=== PATIENT | male | born 1965 | race Caucasian/White ===

== ENCOUNTER 2019-10-01 19:13 | Emergency (ER) | payer SELFPAY ==
[~2019-10-01] VITALS: Ht 177.8 cm; Wt 110.7 kg
[2019-10-01] MEDS ORDERED: ADENOSINE 6 MG/2 ML IVPush ONE ×2 (19:30)
[2019-10-01] MEDS ORDERED: SODIUM CHLORIDE FLUSH 10ML SYR IVF ONE (19:30)
[2019-10-01] MEDS ORDERED: ADENOSINE 6 MG/2 ML ONE (19:36)
--- NOTE | 2019-10-01 19:39 | NUR ---
PT HERE WITH C/O "HEART RACING TYPE FEELING." PT AAO X 4, NAD, ROOM AIR, PT IN GOWN AND ON FULL MONITOR, MD AT BEDSIDE FOR EXAM. PT TO BE GIVEN ADENOSINE. PIV ESTABLISHED BY RN AND LABS DRAWN.
--- NOTE | 2019-10-01 19:42 | NUR ---
PADS ON PT, ADENOSINE AT BEDSIDE.
--- NOTE | 2019-10-01 19:45 | NUR ---
PT ON PADS AND CODE CART IN ROOM.
--- NOTE | 2019-10-01 19:51 | NUR ---
MD AT BEDSIDE, RN X 2 AT BEDSIDE. PT GIVEN 6MG IVP ADENOSINE. PT CONVERTED TO ST WITH A RATE OF 120S. BP 117/76.
[2019-10-01 19:53] VITALS: BP 117/76
--- NOTE | 2019-10-01 19:58 | NUR ---
TECH AT BEDSIDE FOR REPEAT EKG.
[2019-10-01 20:15] LABS: BASOPHILS # (AUTO) 0.04 x10^3/uL (0-0.1); BASOPHILS % (AUTO) 1 % (0-1); EOSINOPHILS # (AUTO) 0.25 x10^3/uL (0-0.4); EOSINOPHILS % (AUTO) 3 % (1-7); LYMPHOCYTES # (AUTO) 3.12 x10^3/uL (1-3.4); LYMPHOCYTES % (AUTO) 35 % (22-44); MD NO; MEAN CORPUSCULAR HGB CONC 33.6 g/dL (33.2-36.2); MEAN CORPUSCULAR VOLUME 98.4 fL (81-97); MEAN PLATELET VOLUME 8.2 fL (7.4-10.4); MONOCYTES # (AUTO) 1.15 x10^3/uL (0.2-0.8); MONOCYTES % (AUTO) 13 % (2-9); NEUTROPHILS # (AUTO) 4.35 x10^3/uL (1.8-6.8); NEUTROPHILS % (AUTO) 49 % (42-75); PLATELET COUNT 306 x10^3/uL (130-400); RED BLOOD COUNT 4.85 x10^6/uL (4.38-5.82); RED CELL DISTRIBUTION WIDTH 12.7 % (9.4-14.8)
--- NOTE | 2019-10-01 20:18 | NUR ---
Patient/Caregiver given discharge instructions and they have confirmed that they understand the instructions. Patient ambulatory with steady gait. PIV REMOVED WITH TIP INTACT.
[2019-10-01 20:22] LABS: ALANINE AMINOTRANSFERASE 68 U/L (12-78); ALBUMIN 4.1 g/dL (3.4-5.0); ANION GAP 12 mmol/L (5-15); CALCIUM 9.6 mg/dL (8.5-10.1); CHLORIDE 104 mmol/L (98-107)
[2019-10-01 20:33] LABS: ALKALINE PHOSPHATASE 66 U/L (45-117); BILIRUBIN,TOTAL 0.5 mg/dL (0.2-1.0); T4 (THYROXINE) 7.2 mcg/dL (4.5-12.1); TOTAL PROTEIN 7.7 g/dL (6.4-8.2)
== END 2019-10-01 21:02 | disposition home or self-care (01) ==
LOC: ED 20:50
DX: I47.1 Supraventricular tachycardia (principal); R00.2 Palpitations; I10 Essential (primary) hypertension
CPT/HCPCS: 36415; 71045; 80053; 83735; 84436; 84443; 85025; 93005; 99285; J0153

== ENCOUNTER 2019-10-30 08:44 | Emergency (ER) | payer OTHER ==
[~2019-10-30] VITALS: Ht 177.8 cm; Wt 111.0 kg
[2019-10-30] MEDS ORDERED: ADENOSINE 6 MG/2 ML ONE ×3 (08:56→09:24)
[2019-10-30 09:18] LABS: BASOPHILS # (AUTO) 0.04 x10^3/uL (0-0.1); BASOPHILS % (AUTO) 1 % (0-1); EOSINOPHILS # (AUTO) 0.14 x10^3/uL (0-0.4); EOSINOPHILS % (AUTO) 2 % (1-7); LYMPHOCYTES # (AUTO) 1.82 x10^3/uL (1-3.4); LYMPHOCYTES % (AUTO) 24 % (22-44); MD NO; MEAN CORPUSCULAR HGB CONC 33.6 g/dL (33.2-36.2); MEAN CORPUSCULAR VOLUME 98.2 fL (81-97); MEAN PLATELET VOLUME 8.3 fL (7.4-10.4); MONOCYTES # (AUTO) 0.81 x10^3/uL (0.2-0.8); MONOCYTES % (AUTO) 11 % (2-9); NEUTROPHILS # (AUTO) 4.66 x10^3/uL (1.8-6.8); NEUTROPHILS % (AUTO) 62 % (42-75); PLATELET COUNT 266 x10^3/uL (130-400); RED BLOOD COUNT 4.88 x10^6/uL (4.38-5.82); RED CELL DISTRIBUTION WIDTH 12.6 % (9.4-14.8)
[2019-10-30 09:25] LABS: ALBUMIN 4.1 g/dL (3.4-5.0); ANION GAP 10 mmol/L (5-15); CALCIUM 9.9 mg/dL (8.5-10.1); CHLORIDE 108 mmol/L (98-107); CREATININE 1.23 mg/dL (0.7-1.3)
[2019-10-30 09:29] LABS: TROPONIN I < 0.015 ng/mL (0.000-0.045)
[2019-10-30] MEDS ORDERED: SODIUM CHLORIDE FLUSH 10ML SYR IVF ONE (09:30)
--- NOTE | 2019-10-30 09:37 | NUR ---
LATE NOTE ENTRY DUE TO PT CARE. PIV established, labs drawn, PIV fluids infusing per EMAR. Pt resting on gurney with no c/o chest pain and is connected to NIBP cuff, continous pulse ox monitor, and tube splicer. Bedrails up x 2 and call light within reach. Pt states he has had "bouts of palpatations over the last two weeks and they would go away. I was convereted about two weeks ago from this. This morning it started about 45 minutes before I got here but won't go away. I have had this issue since I was a teenager I think. I was first converted with medicaiton 25 years ago." Pt denies lightheadedness, dizziness, syncope, cp, sob, n/v/d, or diaphoresis. Medication adminstered by EDMD with ED RN at bedside assisting per EMAR. Pt tolerated medication administration well without any complications. Pt converted with medication per EMAR. No acute distress noticed and no other needs expressed at this time.
[2019-10-30] MEDS ORDERED: ADENOSINE 6 MG/2 ML IVPush ONE ×2 (10:00)
--- NOTE | 2019-10-30 10:29 | NUR ---
Patient given discharge instructions and they have confirmed that they understand the instructions. Patient ambulatory with steady gait. Pt left with d/c paperwork and all personal belongings. NADN. No other needs expressed.
[2019-10-30 10:30] VITALS: BP 130/92
== END 2019-10-30 10:32 | disposition home or self-care (01) ==
LOC: ED 09:17
DX: I47.1 Supraventricular tachycardia (principal); I10 Essential (primary) hypertension; I45.10 Unspecified right bundle-branch block
CPT/HCPCS: 36415; 71045; 80048; 82040; 84484; 85025; 93005; 99291; J0153

== ENCOUNTER 2019-10-30 20:23 | Emergency (ER) | payer SELFPAY ==
[~2019-10-30] VITALS: Ht 177.8 cm; Wt 111.6 kg
[2019-10-30] MEDS ORDERED: ADENOSINE 6 MG/2 ML ONE (20:39)
[2019-10-30] MEDS ORDERED: ADENOSINE 6 MG/2 ML IVPush ONE ×2 (21:00)
[2019-10-30] MEDS ORDERED: METOPROLOL SUCCINATE 50 MG TAB.ER.24H PO ONE (21:00)
[2019-10-30] MEDS ORDERED: METOPROLOL TARTRATE 50 MG TAB ONE (21:03)
[2019-10-30 21:32] VITALS: BP 111/75
--- NOTE | 2019-10-30 21:42 | NUR ---
Late entry: patient presents to ER c/o palpitations. Patient has a hx of SVT and this is how it feels when he is in SVT. He was recently seen for the same and converted with 12 mg Adenosine. Patient denies SOB or other symptoms. Patient is in NAD. Monitor shows SVT. Respirations even and unlabored.
--- NOTE | 2019-10-30 21:43 | NUR ---
Discharge instructions given. All questions and concerns addressed. Patient ambulatory with a steady gait. Belongings with patient.
== END 2019-10-30 21:44 | disposition home or self-care (01) ==
LOC: ED 21:00
DX: I47.1 Supraventricular tachycardia (principal); R00.2 Palpitations; I10 Essential (primary) hypertension
CPT/HCPCS: 93005; 99291; J0153; 92960